=== PATIENT | female | born 1945 | race Caucasian/White ===

== ENCOUNTER → 2016-12-03 | Outpatient (CLI) | payer OTHER, MEDICARE | LOC: GIMAGING 13:30 | PROVIDERS: ATTEND Internal Medicine | DX: M25.531 Pain in right wrist (principal); S79.911A Unspecified injury of right hip, initial encounter; W19.XXXA Unspecified fall, initial encounter; M25.851 Other specified joint disorders, right hip | CPT/HCPCS: 73110-PO; 73502-PO ==